=== PATIENT | male | born 1975 | race Caucasian/White ===

== ENCOUNTER 2016-12-28 20:52 | Emergency (ER) | payer MEDICARE, MEDICAID ==
--- NOTE | 2016-12-28 23:03 | ER Document Report ---
ED General - General Chief Complaint: Burn Stated Complaint: POSSIBLE BURN/LEG Notes: Patient is a 13-year-old male presents for complaint of a burn on this leg. The burn occurred several days ago. Recently start applying Silvadene cream to it since applying Silvadene cream the skin is darkened around the area of the burn. No fevers. No vomiting. No diarrhea. He's concerned says a history of diabetes and also is a kidney and pancreas transplant patient. He's followed by the transplant team in [facility]. His main transplant doctor is Dr. Negro. No other complaints at this time. No warmth to the leg. TRAVEL OUTSIDE OF THE [place] IN LAST 30 DAYS: No - Related Data Allergies/Adverse Reactions: morphine Allergy (Verified 12/28/16 21:25) nifedipine Allergy (Verified 12/28/16 21:25) Past Medical History - Social History Smoking Status: Unknown if Ever Smoked Frequency of alcohol use: None Drug Abuse: None Family History: Reviewed & Not Pertinent Patient has suicidal ideation: No Patient has homicidal ideation: No Endocrine Medical History: Reports: Hx Diabetes Mellitus Type 1 Renal/ Medical History: Reports: Hx End Stage Renal Disease. Denies: Hx Peritoneal Dialysis Past Surgical History: Reports: Other - Renal and pancreas transplant in 2008 Review of Systems - Review of Systems Notes: My Normal Review Basic REVIEW OF SYSTEMS: CONSTITUTIONAL : Denies fever, chills, or sweats. Denies recent illness. EENT: Denies eye, ear, throat, or mouth pain or symptoms. Denies nasal or sinus congestion. CARDIOVASCULAR: Denies chest pain. RESPIRATORY: Denies cough, cold, or chest congestion. Denies shortness of breath, difficulty breathing, or wheezing. GASTROINTESTINAL: Denies abdominal pain. Denies nausea, vomiting, or diarrhea. Denies constipation. Last BM: MUSCULOSKELETAL: Denies neck or back pain or joint pain or swelling. SKIN: Burn on left lower leg. NEUROLOGICAL: Denies altered mental status or loss of consciousness. Denies headache. Denies weakness or paralysis or loss of use of either side. Denies problems with gait or speech. Denies sensory or motor loss. ALL OTHER SYSTEMS REVIEWED AND NEGATIVE. Physical Exam - Vital signs Vitals: Temp Pulse Resp BP Pulse Ox 98.2 F 100 20 133/83 H 97 12/28/16 21:25 12/28/16 21:25 12/28/16 21:25 12/28/16 21:25 12/28/16 21:25 - Notes Notes: General Appearance: Well nourished, alert, cooperative, no acute distress, no obvious discomfort. Well-appearing. Vitals: reviewed, See vital signs table. Head: no swelling or tenderness to the head Eyes: PERRL, EOMI, Conjuctiva clear Extremities: strength 5/5 in all extremities, good pulses in all extremities, no swelling or tenderness in the extremities, no edema. Skin: Patient has a quarter-sized burn in the left lower leg. This proximally 1 cm surrounding area from the burn of darkening redness of the skin. Skin consistent with trauma from the burn itself as well as with application of the Silvadene. There is a little discoloration of the ulcer itself that is again consistent with routine healing of a burn. Skin is not warm. It is not hot. It does not appear to have an associated spreading infection. Neuro: speech clear, oriented x 3, normal affect, responds appropriately to questions. Course - Re-evaluation Re-evalutation: 12/29/16 00:55 I spoke with Umu Kaplan, affiliate marketing coordinator in [place], and explained to her the findings on the wound as well as my plan to switch patient to Cipro and clindamycin. She agrees with this. She said she would discuss the case with Dr. West in the morning and call the patient back morning to recheck and reevaluation. Looking at the wound patient some darkening of the skin which was times is seen with just Silvadene ministration. The skin is not warm. There is no spreading redness. Is not consistent with infection. Being patient is on immunosuppressant medications and is a diabetic think placing him on anabolic is appropriate. We'll place him on Cipro and clindamycin. We will stop the Keflex. Patient to follow closely with his primary care doctor for close reevaluation. I informed him to extremely poor and he returns to ER immediately if has fevers, any spreading redness, or worsening of the wound. Patient agrees with plan and will be discharged home. Dictation of this chart was performed using voice recognition software; therefore, there may be some unintended grammatical errors. - Vital Signs Vital signs: Temp Pulse Resp BP Pulse Ox 98.2 F 100 20 133/83 H 97 04/12/17 21:25 12/28/16 21:25 12/28/16 21:25 12/28/16 21:25 12/28/16 21:25 - Laboratory Result Diagrams: 12/28/16 23:22 12/28/16 23:54 Laboratory results interpreted by me: 12/28/16 23:22 WBC 12.5 H RBC 6.11 H Hgb 17.2 H Hct 51.1 H Discharge - Discharge Clinical Impression: Burn Condition: Good Disposition: HOME, SELF-CARE Additional Instructions: Please return to the ER if you have spreading redness on your leg, fevers, or feel unwell. Please You should hear back from your affiliate marketing coordinator tomorrow. Please stop taking the Keflex. Please start taking the Clindamycin and Cipro. Continue to use the Silvaeden cream and keep wound covered. Prescriptions: Ciprofloxacin HCl [Cipro 500 mg Tablet] 500 mg PO BID #14 tablet Clindamycin HCl 300 mg PO ASDIR #56 capsule
[2016-12-28 23:29] LABS: ABSOLUTE BASOPHILS # (AUTO) 0.1 10^3/uL (0.0-0.2); ABSOLUTE EOSINOPHILS # (AUTO) 0.5 10^3/uL (0.0-0.6); ABSOLUTE LYMPHOCYTES (AUTO) 3.4 10^3/uL (0.5-4.7); ABSOLUTE NEUT (AUTO) 7.4 10^3/uL (1.7-8.2); BASOPHILS % (AUTO) 0.7 % (0-2); EOSINOPHILS % (AUTO) 4.4 % (0-6); HEMATOCRIT 51.1 % (37.9-51.0); HEMOGLOBIN 17.2 g/dL (13.5-17.0); HGB HCT DIFFERENCE 0.5; LYMPHOCYTES % (AUTO) 27.5 % (13-45); MEAN CORPUSCULAR HEMOGLOBIN 28.2 pg (27.0-33.4); MEAN CORPUSCULAR HGB CONC 33.7 g/dL (32.0-36.0); MEAN CORPUSCULAR VOLUME 84 fl (80-97); MONOCYTES % (AUTO) 8.2 % (3-13); RED BLOOD COUNT 6.11 10^6/uL (4.35-5.55); SEGMENTED NEUTROPHILS % (AUTO) 59.2 % (42-78); WHITE BLOOD COUNT 12.5 10^3/uL (4.0-10.5)
[2016-12-29 00:14] LABS: ANION GAP 13 (5-19); BLOOD UREA NITROGEN 17 mg/dL (7-20); CALCIUM 9.9 mg/dL (8.4-10.2); CARBON DIOXIDE 25 mmol/L (22-30); CHLORIDE 104 mmol/L (98-107); CREATININE RESULT 0.96 mg/dL (0.52-1.25); GLUCOSE 87 mg/dL (75-110); POTASSIUM 4.2 mmol/L (3.6-5.0); SODIUM 141.6 mmol/L (137-145)
[2016-12-29 01:31] VITALS: BP 135/87
== END 2016-12-29 00:45 | disposition home or self-care (01) ==
LOC: ER 20:52
DX: T24.002A Burn of unspecified degree of unspecified site of left lower limb, except ankle and foot, initial encounter (principal); X08.8XXA Exposure to other specified smoke, fire and flames, initial encounter; Z88.6 Allergy status to analgesic agent; Z94.83 Pancreas transplant status; Z94.0 Kidney transplant status; E10.22 Type 1 diabetes mellitus with diabetic chronic kidney disease; N18.6 End stage renal disease; Z79.899 Other long term (current) drug therapy
CPT/HCPCS: 36415; 80048; 85025; 99283

== ENCOUNTER 2017-03-14 22:27 | Emergency (ER) | payer MEDICARE, MEDICAID ==
[2017-03-14] MEDS ORDERED: AMOXICILLIN TR/POT CLAVULANATE 500-125 MG TAB PO ONE (23:40)
--- NOTE | 2017-03-14 23:41 | ER Document Report ---
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 Describes it as a dull, aching pain that is worsened by movement of the jaw. No history of similar symptoms in the past. He denies any difficulty breathing or swallowing. He has not seen his primary care doctor regarding today's concerns. Denies any trauma to the area. No fever or constitutional symptoms. TRAVEL OUTSIDE OF THE [place] IN LAST 30 DAYS: No - Related Data Allergies/Adverse Reactions: morphine Allergy (Verified 12/28/16 21:25) nifedipine Allergy (Verified 12/28/16 21:25) Past Medical History - General Information source: Patient - Social History Smoking Status: Never Smoker Frequency of alcohol use: None Drug Abuse: None Lives with: Spouse/Significant other Family History: Reviewed & Not Pertinent Patient has suicidal ideation: No Patient has homicidal ideation: No Endocrine Medical History: Reports: Hx Diabetes Mellitus Type 1 Renal/ Medical History: Reports: Hx End Stage Renal Disease. Denies: Hx Peritoneal Dialysis Past Surgical History: Reports: Other - Renal and pancreas transplant in 2008 Review of Systems - Review of Systems Notes: Constitutional: Negative for fever. HENT: Positive for left facial pain Eyes: Negative for visual changes. Cardiovascular: Negative for chest pain. Respiratory: Negative for shortness of breath. Gastrointestinal: Negative for abdominal pain, vomiting or diarrhea. Genitourinary: Negative for dysuria. Musculoskeletal: Negative for back pain. Skin: Negative for rash. Neurological: Negative for headaches, weakness or numbness. 10 point ROS negative except as marked above and in HPI. Physical Exam - Vital signs Vitals: Temp Pulse Resp BP 98.3 F 91 16 141/89 H 03/14/17 22:33 03/14/17 22:33 03/14/17 22:33 03/14/17 22:33 Interpretation: Hypertensive Notes: PHYSICAL EXAMINATION: GENERAL: Well-appearing, well-nourished and in no acute distress. HEAD: Atraumatic, normocephalic. EYES: Pupils equal round and reactive to light, extraocular movements intact, sclera anicteric, conjunctiva are normal. ENT: nares patent, oropharynx clear without exudates. There is swelling of the buccal mucosa on the left, no obvious facial swelling NECK: Normal range of motion, there is submandibular lymphadenopathy on the left which is where patient localizes pain on exam LUNGS: Breath sounds clear to auscultation bilaterally and equal. No wheezes rales or rhonchi. HEART: Regular rate and rhythm without murmurs ABDOMEN: Soft, nontender, normoactive bowel sounds. No guarding, no rebound. No masses appreciated. EXTREMITIES: Normal range of motion, no pitting or edema. No cyanosis. NEUROLOGICAL: No focal neurological deficits. Moves all extremities spontaneously and on command. PSYCH: Normal mood, normal affect. SKIN: Warm, Dry, normal turgor, no rashes or lesions noted. Course - Re-evaluation Re-evalutation: 03/14/17 23:39 Patient presents with left buccal mucosal swelling as well as lymphadenopathy in the submandibular and jawline consistent with likely dental infection. Patient dentition is overall acceptable on exam. He has no airway compromise. Vitals otherwise within normal limits, no acute distress. No fever. I do not appreciate any fluctuance or area on exam consistent with an acute abscess. Will begin antibiotics and plan for outpatient management. At this time will discharge with return precautions and follow-up recommendations. Verbal discharge instructions given a the bedside and opportunity for questions given. Medication warnings reviewed. Patient is in agreement with this plan and has verbalized understanding of return precautions and the need for primary care follow-up in the next 24-72 hours. - Vital Signs Vital signs: Temp Pulse Resp BP Pulse Ox 98.4 F 96 17 145/87 H 97 03/14/17 22:34 03/14/17 22:34 03/14/17 22:34 03/14/17 22:34 03/14/17 22:34 Discharge - Discharge Clinical Impression: Facial swelling, Dental infection Condition: Good Disposition: HOME, SELF-CARE Additional Instructions: You have been seen for facial swelling likely coming from a infection of 1 of your teeth. It is very important that you follow-up with a dentist for definitive care. Please return if you develop fever greater than 101, burning of swelling in your face, vomiting, difficulty breathing or swallowing, or any other symptoms that are concerning to you. Take the antibiotics as prescribed. Prescriptions: Amox Tr/Potassium Clavulanate [Augmentin 875-125 Tablet] 1 tab PO BID 10 Days Oxycodone HCl [Oxycontin Ir 5 Mg Tablet] 1 mg PO Q4H PRN #6 tablet PRN Reason: For Pain
[2017-03-15] MEDS ORDERED: OXYCODONE HCL IR 5 MG TABLET PO ONE (00:05)
[2017-03-15 00:07] VITALS: BP 141/89
== END 2017-03-15 00:09 | disposition home or self-care (01) ==
LOC: ER 22:27
DX: R68.84 Jaw pain (principal); E10.22 Type 1 diabetes mellitus with diabetic chronic kidney disease; N18.6 End stage renal disease; Z88.6 Allergy status to analgesic agent; Z94.0 Kidney transplant status; Z94.83 Pancreas transplant status
CPT/HCPCS: 99283; A9270 ×2

== ENCOUNTER 2017-05-16 09:19 | Emergency (ER) | payer MEDICAID, MEDICARE ==
--- NOTE | 2017-05-16 10:43 | ER Document Report ---
ED Extremity Problem, Lower - General Chief Complaint: Foot Pain Stated Complaint: FOOT PAIN Time Seen by Provider: 05/16/17 10:21 Notes: Patient says he has been having a "pressure" in the right heel this started Monday. Patient says that he is qualifying for a job at [employer] and worked an 8 hour shift at [employer] for the first time, starting at 10 AM on Monday and ending around 5 PM. He was wearing a pair of work boots that he wears occasionally, the last time being about a week before. His foot began to hurt in the heel region during that work shift. He noted a "squishy" area over the heel itself. Over the weekend the pressure and swelling extended down to the distal sole of that foot. Patient's noted that the heel of the foot appeared swollen and was warm to the touch initially, but it has improved significantly in that regard, with less swelling and heat to the touch.. He has neuropathy and has no feeling from about the mid ortiz area down in both feet , so he does not feel pain. Has not had any drainage from the foot and does not try to stick anything in the foot. Has never been told that he has gout and has never had these symptoms before. Patient has a history of insulin-dependent diabetes and hypertension. He also has a history of renal failure and has had a kidney and pancreas transplant in 2008. Currently on 2 immunosuppressant medications. TRAVEL OUTSIDE OF THE [place] IN LAST 30 DAYS: No - Related Data Allergies/Adverse Reactions: morphine Allergy (Verified 05/16/17 09:51) nifedipine Allergy (Verified 05/16/17 09:51) Past Medical History - Social History Smoking Status: Smoker,Current Status Unk - Smokes an occasional cigar. Family History: Reviewed & Not Pertinent Patient has suicidal ideation: No Patient has homicidal ideation: No Endocrine Medical History: Reports: Hx Diabetes Mellitus Type 1 Renal/ Medical History: Reports: Hx End Stage Renal Disease. Denies: Hx Peritoneal Dialysis Past Surgical History: Reports: Other - Renal and pancreas transplant in 2008 Review of Systems - Review of Systems Notes: REVIEW OF SYSTEMS: CONSTITUTIONAL : Denies fever. EENT: Denies eye, ear, nose or mouth or throat pain or other symptoms. CARDIOVASCULAR: Denies chest pain. RESPIRATORY: Denies cough, chest congestion, or shortness of breath. GASTROINTESTINAL: Denies abdominal pain or nausea, vomiting, or diarrhea. GENITOURINARY: Denies difficulty or painful urinating, urinary frequency, blood in urine. MUSCULOSKELETAL: Denies back or neck pain. See HPI. SKIN: Denies rash or skin lesions. NEUROLOGICAL: Denies LOC or altered mental status. Denies headache. Patient has neuropathy from mid ortiz downward in both legs. Denies motor deficits. ALL OTHER SYSTEMS REVIEWED AND NEGATIVE. Physical Exam - Vital signs Vitals: Temp Pulse BP Pulse Ox 98.4 F 81 146/97 H 97 05/16/17 09:52 05/16/17 09:52 05/16/17 09:52 05/16/17 09:52 Interpretation: Normal - Notes Notes: PHYSICAL EXAMINATION: GENERAL: Well-appearing, in no acute distress. HEAD: Atraumatic, normocephalic. NECK: Normal range of motion, supple. LUNGS: Breath sounds clear and equal bilaterally. HEART: Regular rate and rhythm without murmurs. ABDOMEN: Soft, nontender. No guarding or rebound. BACK: No tenderness throughout entire back. EXTREMITIES: Normal range of motion without pain. Patient's right foot feels as if there is a fluid collection at the very tip of the heel. There is a very slight increase in warmth over that area of his foot, but he does not feel any pain, even with my pressing on that area and there is no erythema there, as well. NEUROLOGICAL: Normal speech, normal gait. Normal motor and reflex exams. Awake, alert, and oriented x3. Cranial nerves normal. PSYCH: Normal mood, normal affect. SKIN: Warm, dry, no rashes. Course - Vital Signs Vital signs: Temp Pulse Resp BP Pulse Ox 98.4 F 81 12 152/90 H 97 05/16/17 14:45 05/16/17 14:45 05/16/17 14:45 05/16/17 14:45 05/16/17 14:45 - Laboratory Result Diagrams: 05/16/17 11:06 05/16/17 11:06 Laboratory results interpreted by me: 05/16/17 05/16/17 05/16/17 11:06 11:06 11:06 Eosinophils % 9.4 H Absolute Eosinophils 1.0 H ESR 21 H BUN 21 H Glucose 181 H AST 16 L Alkaline Phosphatase 140 H C-Reactive Protein 13.7 H Urine Ascorbic Acid 20 H Procedures - Incision and Drainage Right Foot Type: Simple, Single Anesthetic type: 1% Lidocaine mL's of anesthetic: 3 Blade size: 11 I&D procedure: Betadine prep applied Incision Method: Incision made by scalpel Amount/type of drainage: 1 Notes: 05/16/17 20:07 Patient has an area on the heel that feels as if this fluid present. I cleansed the area very thoroughly with Betadine scrub. I then attempted to insert an 18-gauge needle to obtain fluid. Patient does not have the neuropathy that he describes having. He was quite sensitive to even the slightest prick with the needle. I did get some clear fluid out, but the amount was extremely small, less than a milliliter. I then decided to go ahead and debride the area involved. It appears to me that this is a blister. There is no pus present. There is no erythema of the adjacent tissues like a cellulitis. I wonder if the patient just rubbed a blister on his heel when he was working Monday and because of the degree of neuropathy he does have, he was not able to tell that that was occurring until it was already present. I therefore debrided an area approximately 2-3 cm diameter of the heel. That skin was not attached to the underlying subcutaneous tissue and was not going to serve as a viable piece of tissue anyway. I then cleaned the area very nicely and recommend the patient do the same a couple of times a day and will watch for signs of infection. Discharge - Discharge Clinical Impression: Blister of right foot, Visit for debridement Condition: Stable Disposition: HOME, SELF-CARE Additional Instructions: Blister right foot Avulsion Injury You have an avulsion injury -- a loss of skin which can't be helped by suturing. When large, these injuries can require skin grafting. Smaller defects or shallow avulsions usually heal well with dressings. Keep the dressing clean and dry. If the bandage becomes wet, remove it, blot the area dry, and apply a fresh dressing. Change the dressings twice every day. Rinse the wound off for about 5 minutes in the shower or with water running into a bathtub. You can then apply a dry gauze pad dressing to the area. If you want to apply an antibiotic cream, Use Bacitracin, Preferably Not Neosporin. Complete healing may take anywhere from 10 days to two months. The healing time depends on the size and depth of the avulsion and on the amount of crushing of underlying tissues. If any signs of infection occur (swelling, redness, increasing tenderness, red streaks, profuse purulent drainage from the avulsion, tender lumps in the armpit or groin above the avulsion, or fever), see your doctor immediately or return to the emergency department for reevaluation. Oral Narcotic Medication You have been given a prescription for pain control. This medication is a narcotic. It's best taken with food, as nausea can result if taken on an empty stomach. Don't operate machinery or drive within six hours of taking this medication. Do not combine this medicine with alcohol, or with any medication which can cause sedation (such as cold tablets or sleeping pills) unless you get permission from the physician. Narcotics tend to cause constipation. If possible, drink plenty of fluids and eat a diet high in fiber and fruits. . FOLLOW-UP CARE: If you have been referred to a physician for follow-up care, call the physician s office for an appointment as you were instructed or within the next two days. If you experience worsening or a significant change in your symptoms, notify the physician immediately or return to the Emergency Department at any time for re-evaluation. Prescriptions: Oxycodone HCl/Acetaminophen [Percocet 5-325 mg Tablet] 1 - 2 tab PO Q4H PRN #25 tablet PRN Reason: Forms: Return to Work Referrals: MOLINA ALBERTO PA-C [Primary Care Provider] - Follow up as needed
[2017-05-16 11:46] LABS: ABSOLUTE BASOPHILS # (AUTO) 0.1 10^3/uL (0.0-0.2); ABSOLUTE LYMPHOCYTES (AUTO) 3.4 10^3/uL (0.5-4.7); ABSOLUTE MONOCYTES (AUTO) 0.9 10^3/uL (0.1-1.4); ABSOLUTE NEUT (AUTO) 4.9 10^3/uL (1.7-8.2); BASOPHILS % (AUTO) 0.9 % (0-2); EOSINOPHILS % (AUTO) 9.4 % (0-6); HEMATOCRIT 46.5 % (37.9-51.0); HEMOGLOBIN 15.6 g/dL (13.5-17.0); HGB HCT DIFFERENCE 0.3; LYMPHOCYTES % (AUTO) 32.9 % (13-45); MEAN CORPUSCULAR HGB CONC 33.5 g/dL (32.0-36.0); MEAN CORPUSCULAR VOLUME 87 fl (80-97); MONOCYTES % (AUTO) 8.7 % (3-13); RED BLOOD COUNT 5.37 10^6/uL (4.35-5.55); RED CELL DISTRIBUTION WIDTH 13.9 % (11.5-14.0); SEGMENTED NEUTROPHILS % (AUTO) 48.1 % (42-78); WHITE BLOOD COUNT 10.2 10^3/uL (4.0-10.5)
[2017-05-16 11:48] LABS: APPEARANCE,URINE SLIGHTLY-CLOUDY; BILIRUBIN,URINE NEGATIVE (NEGATIVE); GLUCOSE, URINE NEGATIVE (NEGATIVE); KETONES,URINE NEGATIVE (NEGATIVE); LEUKOCYTE ESTERASE,URINE NEGATIVE (NEGATIVE); NITRITE,URINE NEGATIVE (NEGATIVE); PROTEIN,URINE NEGATIVE (NEGATIVE); URINE SPECIFIC GRAVITY 1.026; UROBILINOGEN,URINE NEGATIVE mg/dL (<2.0)
[2017-05-16 12:04] LABS: ALANINE AMINOTRANSFERASE 36 U/L (21-72); ALBUMIN 3.7 g/dL (3.5-5.0); ALKALINE PHOSPHATASE 140 U/L (38-126); ANION GAP 12 (5-19); ASPARTATE AMINO TRANSFERASE 16 U/L (17-59); BILIRUBIN,DIRECT 0.3 mg/dL (0.0-0.4); BILIRUBIN,TOTAL 0.4 mg/dL (0.2-1.3); BLOOD UREA NITROGEN 21 mg/dL (7-20); C-REACTIVE PROTEIN 13.7 mg/L (<10.0); CALCIUM 10.2 mg/dL (8.4-10.2); CARBON DIOXIDE 24 mmol/L (22-30); CHLORIDE 104 mmol/L (98-107); GLUCOSE 181 mg/dL (75-110); LIPASE 48.2 U/L (23-300); POTASSIUM 4.3 mmol/L (3.6-5.0); SODIUM 139.6 mmol/L (137-145); TOTAL PROTEIN 7.1 g/dL (6.3-8.2); URIC ACID 5.9 mg/dL (3.5-8.5)
[2017-05-16] MEDS ORDERED: LIDOCAINE 1% INJ-PF (10 MG/ML) 30 ML SDV INJ ONE (12:18)
--- NOTE | 2017-05-16 12:21 | RADIOLOGY REPORT (SQ) ---
EXAM DESCRIPTION: FOOT RIGHT COMPLETE COMPLETED DATE/TIME: 05/16/2017 11:23 am REASON FOR STUDY: neuropathy feet, IDDM, "pressure" heel, dist foot COMPARISON: None. NUMBER OF VIEWS: Three views. TECHNIQUE: AP, lateral and oblique radiographic images acquired of the right foot. LIMITATIONS: None. FINDINGS: MINERALIZATION: Normal. BONES: No acute fracture or dislocation. No worrisome bone lesions. JOINTS: No effusions. SOFT TISSUES: Medial soft tissue fullness of the distal phalanx great toe. OTHER: No other significant finding. IMPRESSION: No evidence for osteomyelitis. No radio opaque foreign body. TECHNICAL DOCUMENTATION: JOB ID: [id number] [employer]- All Rights Reserved
[2017-05-16 12:26] LABS: ERYTHROCYTE SEDIMENTATION RATE 21 mm/hr (0-15)
[2017-05-16 14:53] VITALS: BP 152/90
== END 2017-05-16 14:46 | disposition home or self-care (01) ==
LOC: ER 09:19
PROC: 0H9MXZZ Drainage of Right Foot Skin, External Approach (ICD-10-PCS; principal; 2017-05-16)
DX: R23.8 Other skin changes (principal); M79.671 Pain in right foot; E10.22 Type 1 diabetes mellitus with diabetic chronic kidney disease; N18.6 End stage renal disease; Z94.0 Kidney transplant status; Z94.83 Pancreas transplant status; Z88.6 Allergy status to analgesic agent; Z79.899 Other long term (current) drug therapy
CPT/HCPCS: 36415; 80053; 81001; 83690; 84550; 85025; 85652; 86140; 87040; 87070; 87205; 99284

== ENCOUNTER 2017-05-24 16:22 | Emergency (ER) | payer MEDICARE ==
[2017-05-24] MEDS ORDERED: NORMAL SALINE 1000 ML 1,000 ML IV ONE (16:50)
--- NOTE | 2017-05-24 16:53 | ER Document Report ---
ED Medical Screen (RME) - General Chief Complaint: Abdominal Pain Stated Complaint: ABDOMINAL PAIN, VOMITING Time Seen by Provider: 05/24/17 16:50 Notes: Patient has a history of kidney and pancreatic transplants. He states that he started today with severe epigastric abdominal pain. He is having vomiting with it. As well as some diarrhea. He states he has never had this, pain before. He states the pain is not related to his kidney or pancreas. He says he has had a low-grade fever and weakness. He is also had a previous cholecystectomy. TRAVEL OUTSIDE OF THE [place] IN LAST 30 DAYS: No - Related Data Allergies/Adverse Reactions: morphine Allergy (Verified 05/24/17 16:28) nifedipine Allergy (Verified 05/24/17 16:28) Past Medical History - Social History Frequency of alcohol use: Occasional Drug Abuse: None - Past Medical History Cardiac Medical History: Reports: Hx Heart Attack - x 3 Endocrine Medical History: Reports: Hx Diabetes Mellitus Type 1 Renal/ Medical History: Reports: Hx End Stage Renal Disease, Hx Kidney Stones. Denies: Hx Peritoneal Dialysis Past Surgical History: Reports: Hx Kidney (Renal Surgery) - kidney transplant 2008, Hx Pituitary Surgery - pancreas transplant 2008, Other - Renal and pancreas transplant in 2008 Physical Exam - Vital signs Vitals: Temp Pulse Resp BP Pulse Ox 99.1 F 98 20 168/92 H 100 05/24/17 16:28 05/24/17 16:28 05/24/17 16:28 05/24/17 16:28 05/24/17 16:28 Course - Vital Signs Vital signs: Temp Pulse Resp BP Pulse Ox 99.1 F 98 20 168/92 H 100 05/24/17 16:28 05/24/17 16:28 05/24/17 16:28 05/24/17 16:28 05/24/17 16:28
[2017-05-24 17:05] LABS: ABSOLUTE BASOPHILS # (AUTO) 0.1 10^3/uL (0.0-0.2); ABSOLUTE EOSINOPHILS # (AUTO) 0.5 10^3/uL (0.0-0.6); ABSOLUTE MONOCYTES (AUTO) 0.7 10^3/uL (0.1-1.4); BASOPHILS % (AUTO) 0.7 % (0-2); EOSINOPHILS % (AUTO) 4.3 % (0-6); HEMATOCRIT 46.8 % (37.9-51.0); HEMOGLOBIN 15.5 g/dL (13.5-17.0); HGB HCT DIFFERENCE -0.3; LYMPHOCYTES % (AUTO) 16.3 % (13-45); MEAN CORPUSCULAR HEMOGLOBIN 28.9 pg (27.0-33.4); MEAN CORPUSCULAR HGB CONC 33.1 g/dL (32.0-36.0); MEAN CORPUSCULAR VOLUME 87 fl (80-97); MONOCYTES % (AUTO) 5.8 % (3-13); RED BLOOD COUNT 5.36 10^6/uL (4.35-5.55); RED CELL DISTRIBUTION WIDTH 13.4 % (11.5-14.0); SEGMENTED NEUTROPHILS % (AUTO) 72.9 % (42-78); WHITE BLOOD COUNT 12.3 10^3/uL (4.0-10.5)
[2017-05-24 17:22] LABS: ALANINE AMINOTRANSFERASE 125 U/L (21-72); ALBUMIN 3.9 g/dL (3.5-5.0); ALKALINE PHOSPHATASE 291 U/L (38-126); ANION GAP 11 (5-19); ASPARTATE AMINO TRANSFERASE 152 U/L (17-59); BILIRUBIN,DIRECT 0.4 mg/dL (0.0-0.4); BILIRUBIN,TOTAL 0.8 mg/dL (0.2-1.3); BLOOD UREA NITROGEN 18 mg/dL (7-20); CALCIUM 9.9 mg/dL (8.4-10.2); CARBON DIOXIDE 25 mmol/L (22-30); CHLORIDE 102 mmol/L (98-107); CREATININE RESULT 1.03 mg/dL (0.52-1.25); GLUCOSE 291 mg/dL (75-110); POTASSIUM 4.9 mmol/L (3.6-5.0); TOTAL PROTEIN 7.5 g/dL (6.3-8.2)
--- NOTE | 2017-05-24 17:24 | RADIOLOGY REPORT (SQ) ---
EXAM DESCRIPTION: ACUTE ABDOMEN SERIES COMPLETED DATE/TIME: 05/24/2017 5:00 pm REASON FOR STUDY: abd pain COMPARISON: None. NUMBER OF VIEWS: Three views. TECHNIQUE: Frontal chest, supine abdomen and upright abdomen radiographic images acquired. LIMITATIONS: None. FINDINGS: CHEST: Lungs clear of infiltrates. FREE AIR: None. No abnormal gas collections. BOWEL GAS PATTERN: Nonobstructive pattern. No dilated loops or air fluid levels. CALCIFICATIONS: No suspicious calcifications. HARDWARE: None in the abdomen. SOFT TISSUES: No gross mass or suggestion of organomegaly. BONES: No acute fracture. No worrisome bone lesions. OTHER: No other significant finding. IMPRESSION: NO RADIOGRAPHIC EVIDENCE FOR ACUTE ABDOMINAL DISEASE. TECHNICAL DOCUMENTATION: JOB ID: [id number] [employer]- All Rights Reserved
[2017-05-24 17:57] LABS: VENOUS BLOOD HCO3 25.6 mmol/L (20-32); VENOUS BLOOD PCO2 44.9 mmHg (35-63); VENOUS BLOOD PH 7.37 (7.30-7.42)
[2017-05-24] MEDS ORDERED: PROMETHAZINE HCL INJ 25 MG/1 ML VIAL IM ONE (17:58)
[2017-05-24] MEDS ORDERED: FAMOTIDINE INJ/PF 20 MG/2 ML SDV IV ONE (17:58)
[2017-05-24 19:22] LABS: APPEARANCE,URINE SLIGHTLY-CLOUDY; BILIRUBIN,URINE NEGATIVE (NEGATIVE); GLUCOSE, URINE >=500 mg/dL (NEGATIVE); KETONES,URINE 20 mg/dL (NEGATIVE); LEUKOCYTE ESTERASE,URINE NEGATIVE (NEGATIVE); NITRITE,URINE NEGATIVE (NEGATIVE); PROTEIN,URINE NEGATIVE (NEGATIVE); URINE SPECIFIC GRAVITY 1.015; UROBILINOGEN,URINE NEGATIVE mg/dL (<2.0)
--- NOTE | 2017-05-24 19:46 | EKG REPORT ---
SEVERITY:- BORDERLINE ECG - SINUS RHYTHM : Confirmed by: Marek Goodrich MD 24-May-2017 19:45:57
[2017-05-24] MEDS ORDERED: HYDROMORPHONE HCL INJ/PF 2 MG/ML AMPULE IV ONE (20:28)
--- NOTE | 2017-05-24 21:03 | ER Document Report ---
ED General - General Chief Complaint: Abdominal Pain Stated Complaint: ABDOMINAL PAIN, VOMITING Time Seen by Provider: 05/24/17 16:50 TRAVEL OUTSIDE OF THE [place] IN LAST 30 DAYS: No - HPI Patient complains to provider of: Nausea vomiting diarrhea epigastric abdominal pain Notes: Patient coming in for nausea vomiting diarrhea epigastric abdominal pain ongoing for the last few hours. Patient states yesterday had a hamburger at a local restaurant since that time has had symptoms. Denies any sick contacts. 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 The transplant were performed in [facility] however patient currently follows up with transplant team at [facility]. States fever however no T-max. Temperature here is 99.1. Upon my evaluation patient is resting comfortably no signs of any obvious distress. States compliance with medications denies any alcohol abuse. - Related Data Allergies/Adverse Reactions: morphine Allergy (Verified 05/24/17 16:28) nifedipine Allergy (Verified 05/24/17 16:28) Past Medical History - Social History Smoking Status: Current Some Day Smoker Frequency of alcohol use: Occasional Drug Abuse: None Family History: Reviewed & Not Pertinent Patient has suicidal ideation: No Patient has homicidal ideation: No - Past Medical History Cardiac Medical History: Reports: Hx Heart Attack - x 3 Endocrine Medical History: Reports: Hx Diabetes Mellitus Type 1 Renal/ Medical History: Reports: Hx End Stage Renal Disease, Hx Kidney Stones. Denies: Hx Peritoneal Dialysis Past Surgical History: Reports: Hx Kidney (Renal Surgery) - kidney transplant 2008, Hx Pituitary Surgery - pancreas transplant 2008, Other - Renal and pancreas transplant in 2008 Review of Systems - Review of Systems Constitutional: No symptoms reported EENT: No symptoms reported Cardiovascular: No symptoms reported Respiratory: No symptoms reported Gastrointestinal: Abdominal pain, Diarrhea, Nausea, Vomiting Genitourinary: No symptoms reported Male Genitourinary: No symptoms reported Musculoskeletal: No symptoms reported Skin: No symptoms reported Hematologic/Lymphatic: No symptoms reported Neurological/Psychological: No symptoms reported -: Yes All other systems reviewed and negative Physical Exam - Vital signs Vitals: Temp Pulse Resp BP Pulse Ox 99.1 F 98 20 168/92 H 100 05/24/17 16:28 05/24/17 16:28 05/24/17 16:28 05/24/17 16:28 05/24/17 16:28 Interpretation: Normal - General General appearance: Appears well, Alert - HEENT Head: Normocephalic, Atraumatic Eyes: Normal Pupils: PERRL - Respiratory Respiratory status: No respiratory distress Chest status: Nontender Breath sounds: Normal Chest palpation: Normal - Cardiovascular Rhythm: Regular Heart sounds: Normal auscultation Murmur: No - Abdominal Inspection: Normal Distension: No distension Bowel sounds: Normal Tenderness: Nontender Organomegaly: No organomegaly - Back Back: Normal, Nontender - Extremities General upper extremity: Normal inspection, Nontender, Normal color, Normal ROM , Normal temperature General lower extremity: Normal inspection, Nontender, Normal color, Normal ROM , Normal temperature, Normal weight bearing. No: Ranjeet's sign - Neurological Neuro grossly intact: Yes Cognition: Normal Orientation: AAOx4 Nhi Coma Scale Eye Opening: Spontaneous [place] Coma Scale Verbal: Oriented [place]hi Coma Scale Motor: Obeys Commands Nhi Coma Scale Total: 15 Speech: Normal Motor strength normal: LUE, RUE, LLE, RLE Sensory: Normal - Psychological Associated symptoms: Normal affect, Normal mood - Skin Skin Temperature: Warm Skin Moisture: Dry Skin Color: Normal Course - Re-evaluation Re-evalutation: 05/24/17 22:56 Patient laboratory studies does show elevation in ALT AST. I did discuss these laboratory findings with the transplant team at [facility]. Upon speaking with the covering physician agrees that more likely probably underlying viral etiology at this time the concern for rejection recommend patient be treated symptomatically and follow-up in a week for repeat laboratory studies to return to the ER if his symptoms worsen. Patient feeling better after antiemetics and pain medication. Will discharge patient home patient will be given instructions to follow-up. - Vital Signs Vital signs: Temp Pulse Resp BP Pulse Ox 97.8 F 90 18 142/90 H 95 05/24/17 21:20 05/24/17 21:20 05/24/17 21:20 05/24/17 21:20 05/24/17 21:20 - Laboratory Result Diagrams: 05/24/17 16:40 05/24/17 16:40 Laboratory results interpreted by me: 05/24/17 05/24/17 05/24/17 16:40 16:40 17:19 WBC 12.3 H Absolute Neutrophils 9.0 H Glucose 291 H POC Glucose 308 H AST 152 H ALT 125 H Alkaline Phosphatase 291 H Urine Glucose (UA) Urine Ketones Urine Ascorbic Acid 05/24/17 17:25 WBC Absolute Neutrophils Glucose POC Glucose AST ALT Alkaline Phosphatase Urine Glucose (UA) >=500 H Urine Ketones 20 H Urine Ascorbic Acid 40 H Discharge - Discharge Clinical Impression: LFT elevation, Nausea vomiting and diarrhea Abdominal pain Qualifiers: Abdominal location: epigastric Qualified Code(s): R10.13 - Epigastric pain Condition: Good Disposition: HOME, SELF-CARE Instructions: Abdominal Pain ([facility]), Gastroenteritis (adult) ([facility]) Additional Instructions: I discussed your evaluation today with your transplant team at [facility]. At this time agreed on likely viral etiology for your symptoms however with slight elevation in your liver function test recommend repeat laboratory studies in 1 week. Take the Phenergan and Zofran as needed for nausea he may take the Bentyl also as needed for pain control. Return to ER symptoms worsen. Prescriptions: Ondansetron [Zofran Odt 4 mg Tablet] 4 mg PO Q4HP PRN #30 tab.rapdis PRN Reason: Dicyclomine HCl [Bentyl 20 mg Tablet] 20 mg PO QID #30 tablet Promethazine HCl [Phenergan 25 mg Tablet] 25 - 50 mg PO ASDIR PRN #30 tablet PRN Reason: Referrals: MOLINA ALBERTO PA-C [Primary Care Provider] - Follow up as needed
[2017-05-24 21:22] VITALS: BP 142/90
== END 2017-05-24 21:10 | disposition home or self-care (01) ==
LOC: ER 16:22
DX: R79.89 Other specified abnormal findings of blood chemistry (principal); R11.2 Nausea with vomiting, unspecified; R19.7 Diarrhea, unspecified; R10.13 Epigastric pain; R10.9 Unspecified abdominal pain; R11.10 Vomiting, unspecified; F17.200 Nicotine dependence, unspecified, uncomplicated
CPT/HCPCS: 93005; 99284; 96372; 96374; 96375; 36415; 87040; 87086; 82962; 83690; 85025; 80053; 81001; 82803; 83605; 74022; 93010; J1170; J2550; J7030; S0028

== ENCOUNTER 2017-09-30 18:28 | Emergency (ER) | payer MEDICARE, MEDICAID ==
--- NOTE | 2017-09-30 19:21 | ER Document Report ---
ED Medical Screen (RME) - General Chief Complaint: Cyst Stated Complaint: ABSCESS/RIGHT SHOULDER Time Seen by Provider: 09/30/17 19:20 Mode of Arrival: Ambulatory Information source: Patient TRAVEL OUTSIDE OF THE [place] IN LAST 30 DAYS: No - HPI Patient complains to provider of: abscess R shoulder Onset: Other - pt. with recurrent abscess on R shoulder -- has gotten larger and more tender in the past few days. - Related Data Allergies/Adverse Reactions: morphine Allergy (Verified 09/30/17 19:12) nifedipine Allergy (Verified 09/30/17 19:12) Home Medications: Current Home Medications Aspirin 81 mg PO DAILY 09/30/17 [History] Insulin Aspart [Novolog Insulin 100 Unit/1 ml 10 ml] 1 unit SUBCUT .SLD SCALE [History] Insulin Detemir [Levemir Flextouch] 50 unit SQ QPM 09/30/17 [History] Mycophenolate Mofetil 500 mg PO BID 09/30/17 [History] Tacrolimus [Prograf] 2 mg PO BID 09/30/17 [History] Venlafaxine HCl ER [Effexor Xr 75 mg Cap.sr] 75 mg PO BID 09/30/17 [History] Past Medical History - Social History Chew tobacco use (# tins/day): No Frequency of alcohol use: None Drug Abuse: None - Past Medical History Cardiac Medical History: Reports: Hx Heart Attack - x 3 Endocrine Medical History: Reports: Hx Diabetes Mellitus Type 1 Renal/ Medical History: Reports: Hx End Stage Renal Disease, Hx Kidney Stones. Denies: Hx Peritoneal Dialysis Past Surgical History: Reports: Hx Kidney (Renal Surgery) - kidney transplant 2008, Hx Pituitary Surgery - pancreas transplant 2008, Other - Renal and pancreas transplant in 2008 Physical Exam - Vital signs Vitals: Temp Pulse Resp BP Pulse Ox 98.6 F 93 20 145/84 H 97 09/30/17 18:53 09/30/17 18:53 09/30/17 18:53 09/30/17 18:53 09/30/17 18:53 Course - Vital Signs Vital signs: Temp Pulse Resp BP Pulse Ox 98.6 F 93 20 145/84 H 97 09/30/17 18:53 09/30/17 18:53 09/30/17 18:53 09/30/17 18:53 09/30/17 18:53
[2017-09-30] MEDS ORDERED: OXYCODONE HCL IR 5 MG TABLET PO ONE (19:45)
--- NOTE | 2017-09-30 19:57 | ER Document Report ---
HPI - HPI Patient complains to provider of: Abscess Onset: Other - 5 days Onset/Duration: Worse Quality of pain: Sharp Pain Level: 3 Context: Patient complains of a cystic-like lesion to the right upper back area for several years. Patient states that occasionally will get infected and have to be opened and drained. Patient states area has become red, tender and swollen over the past 5 days. Patient denies any fever. Have a history of kidney and pancreas transplant and because of this he has not had a surgeon that has wanted to excise the cystic lesion. Patient is additionally requesting a quadrivalent influenza vaccine today as his doctor was out of the vaccine in the office Associated Symptoms: Other - Abscess to right back. denies: Fever Exacerbated by: Movement Relieved by: Denies Similar symptoms previously: Yes Recently seen / treated by doctor: Yes - Patient's being followed by ophthalmology for ocular issues - ROS ROS below otherwise negative: Yes Systems Reviewed and Negative: Yes All other systems reviewed and negative - CONSTITUTIONAL Constitutional: DENIES: Fever, Chills - GASTROINTESTINAL Gastrointestinal: DENIES: Nausea, Patient vomiting - MUSCULOSKELETAL Musculoskeletal: REPORTS: Back Pain - DERM Notes: Abscess Past Medical History - General Information source: Patient - Social History Smoking Status: Current Some Day Smoker Chew tobacco use (# tins/day): No Frequency of alcohol use: None Drug Abuse: None Occupation: None Lives with: Family Family History: Reviewed & Not Pertinent Patient has suicidal ideation: No Patient has homicidal ideation: No - Past Medical History Cardiac Medical History: Reports: Hx Heart Attack - x 3 Endocrine Medical History: Reports: Hx Diabetes Mellitus Type 1 Renal/ Medical History: Reports: Hx End Stage Renal Disease, Hx Kidney Stones. Denies: Hx Peritoneal Dialysis Past Surgical History: Reports: Hx Kidney (Renal Surgery) - kidney transplant 2008, Other - Renal and pancreas transplant in 2008 Vertical Provider Document - CONSTITUTIONAL Agree With Documented VS: Yes Exam Limitations: No Limitations General Appearance: WD/WN, No Apparent Distress - INFECTION CONTROL TRAVEL OUTSIDE OF THE [place] IN LAST 30 DAYS: No - HEENT HEENT: Atraumatic, Normocephalic - NECK Neck: Normal Inspection - RESPIRATORY Respiratory: No Respiratory Distress O2 Sat by Pulse Oximetry: 97 - BACK Back: Abnormal Inspection - Erythematous cyst to right upper back. negative: CVA Tenderness-Right, CVA Tenderness-Left - MUSCULOSKELETAL/EXTREMETIES Musculoskeletal/Extremeties: MAEW, FROM, Non-Tender - NEURO Level of Consciousness: Awake, Alert, Appropriate Motor/Sensory: No Motor Deficit - DERM Integumentary: Warm, Dry, Abscess - Erythematous cyst to right upper back concerning for abscess Course - Re-evaluation Re-evalutation: 10/01/17 21:[address] Alexis regarding patient presentation and choice of antibiotics. Advises using either Bactrim or clindamycin but recommends reviewing medication interactions of his antirejection medications. After reviewing medication interactions it was decided to use clindamycin, patient does state that he has taken this medication in the past. Patient encouraged to follow-up with his transplant surgeon for follow-up. Discussed worsening symptoms that patient should return for. Patient verbalized understanding and agrees with plan of care - Vital Signs Vital signs: Temp Pulse Resp BP Pulse Ox 98.6 F 93 20 145/84 H 97 09/30/17 18:53 09/30/17 18:53 09/30/17 18:53 09/30/17 18:53 09/30/17 18:53 Procedures - Incision and Drainage Right Back Type: Simple Anesthetic type: 1% Lidocaine Blade size: 11 I&D procedure: Betadine prep applied Incision Method: Incision made by scalpel Amount/type of drainage: mod amount of purulent drainage Adult Front & Back picture: 1 - Abscess Discharge - Discharge Clinical Impression: Abscess, Encounter for incision and drainage procedure, Hx of essential hypertension Condition: Stable Disposition: HOME, SELF-CARE Instructions: Abscess ([facility]), Oral Narcotic Medication ([facility]), Post Incision and Drainage Additional Instructions: Return immediately for any new or worsening symptoms Followup with your primary care provider, call tomorrow to make a followup appointment Prescriptions: Oxycodone HCl [Oxy-Ir 5 mg Tablet] 5 mg PO Q6HP PRN #15 tab PRN Reason: Clindamycin HCl [Cleocin 300 mg Capsule] 300 mg PO TID #21 capsule Referrals: MOLINA ALBERTO PA-C [Primary Care Provider] - Follow up tomorrow
[2017-09-30] MEDS ORDERED: INFLUENZA ADLT QUAD (36MOS+) 2017-18 VAC 0.5 ML SYR IM ONE (21:13)
[2017-09-30] MEDS ORDERED: CLINDAMYCIN HCL 150 MG CAPSULE PO ONE (21:28)
[2017-09-30 23:48] VITALS: BP 141/93
== END 2017-09-30 22:00 | disposition home or self-care (01) ==
LOC: ER 18:28
DX: L02.212 Cutaneous abscess of back [any part, except buttock and flank] (principal); E10.9 Type 1 diabetes mellitus without complications; I10 Essential (primary) hypertension; I25.2 Old myocardial infarction; F17.200 Nicotine dependence, unspecified, uncomplicated; Z23 Encounter for immunization; Z94.0 Kidney transplant status; Z94.83 Pancreas transplant status
CPT/HCPCS: 99283; 90686; 10060; A9270 ×2